=== PATIENT | male | born 1980 | race Caucasian/White ===

== ENCOUNTER 2020-04-15 02:30 | Emergency (ER) | payer SELFPAY ==
[~2020-04-15] VITALS: Ht 182.9 cm; Wt 100.0 kg
--- NOTE | 2020-04-15 02:39 | NUR ---
currently he is laying on his back slightly rolled to his right and moaning and his leg muscles are tight and his hands a little tremulous. Lasted 1 minute and now he is calm. Officer applying handcuffs.
[2020-04-15 02:47] LABS: BASOPHILS # (AUTO) 0.1 X10'3 (0-0.2); BASOPHILS % (AUTO) 0.7 % (0-1); EOSINOPHILS % (AUTO) 0.3 % (0-6); HEMATOCRIT 49.5 % (42.0-52.0); HEMOGLOBIN 16.8 g/dl (14.0-17.9); LYMPHOCYTES # (AUTO) 1.2 X10'3 (1.1-4.8); LYMPHOCYTES % (AUTO) 13.3 % (21-51); MEAN CORPUSCULAR HEMOGLOBIN 30.3 PG (27.0-31.0); MEAN CORPUSCULAR HGB CONC 33.9 g/dL (33.0-36.5); MEAN CORPUSCULAR VOLUME 89.3 FL (78-98); MEAN PLATELET VOLUME 9.3 FL (7.4-10.4); MONOCYTES # (AUTO) 0.9 X10'3 (0-0.9); MONOCYTES % (AUTO) 9.9 % (2-12); NEUTROPHILS % (AUTO) 75.8 % (42-75); PLATELET COUNT 211 X10'3 (140-440); RED BLOOD COUNT 5.55 X10'6 (4.70-6.10); RED CELL DISTRIBUTION WIDTH 13.4 % (11.5-14.5); WHITE BLOOD COUNT 9.3 X10'3 (4.5-11.0)
[2020-04-15 02:57] LABS: ALANINE AMINOTRANSFERASE 38 U/L (12-78); ALBUMIN 4.4 G/DL (3.4-5.0); ALBUMIN/GLOBULIN RATIO 1.2 (1.1-1.5); ALKALINE PHOSPHATASE 94 IU/L (46-116); ANION GAP 7 (8-16); ASPARTATE AMINO TRANSFERASE 28 U/L (10-37); BILIRUBIN,TOTAL 0.5 MG/DL (0.1-1.0); BLOOD UREA NITROGEN 21 MG/DL (7-18); BUN/CREATININE RATIO 15.3 (5.4-32.0); CALCIUM 9.4 MG/DL (8.5-10.1); CHLORIDE 105 MMOL/L (99-107); CREATININE 1.37 MG/DL (0.60-1.10); GLUCOSE 114 MG/DL (70-104); POTASSIUM 3.7 MMOL/L (3.5-5.1); SODIUM 141 MMOL/L (135-145); TOTAL CARBON DIOXIDE 29.4 MMOL/L (24-32); eGFR 58 ML/MIN
[2020-04-15 02:59] LABS: ETHANOL < 0.010 GM/DL (0.0-0.010)
--- NOTE | 2020-04-15 03:09 | NUR ---
EYES CLOSED, COUGHING LIGHTLY. SO HOB ELEVATED TO 40 DEGREES.
--- NOTE | 2020-04-15 03:17 | NUR ---
INFORMED BY RAYMUNDO CORTEZ THAT THE PT DIDN'T MOVE AT ALL WHEN THE CATH WAS PLACED FOR UA. AWARE.
[2020-04-15 03:22] LABS: CLARITY,URINE CLEAR (Clear); COLOR,URINE YELLOW (Yellow); GLUCOSE, URINE NEGATIVE (Neg); KETONES,URINE NEGATIVE (Neg); LEUKOCYTE ESTERASE ,URINE NEGATIVE (Neg); NITRITES, URINE NEGATIVE (Neg); OCCULT BLOOD,URINE NEGATIVE (Neg); PROTEIN,URINE NEGATIVE (Neg); UROBILINOGEN,URINE 0.2 E.U/dL (0.2-1.0)
[2020-04-15 03:27] LABS: UA COLLECTION TYPE STRAIGHT CATH
[2020-04-15 03:31] LABS: URINE AMPHETAMINE SCREEN POSITIVE (Neg); URINE BARBITUATE SCREEN NEGATIVE (Neg); URINE BENZODIAZEPINES SCREEN NEGATIVE (Neg); URINE CANNABINOID SCREEN NEGATIVE (Neg); URINE COCAINE SCREEN NEGATIVE (Neg); URINE METHADONE SCREEN NEGATIVE (Neg); URINE OPIATE SCREEN NEGATIVE (Neg); URINE PHENCYCLIDINE SCREEN NEGATIVE (Neg)
[2020-04-15 03:41] VITALS: BP 139/90
--- NOTE | 2020-04-15 03:41 | NUR ---
was in to tell him that all labs were normal, meth in his urine. He lays with his eyes closed, wiggling his right foot.
--- NOTE | 2020-04-15 03:46 | NUR ---
PT HAD BEEN LISTENING TO WHAT THE MD STATED. HE AWOKE AND MOVED HIS HAND TO HIS NOSE AND THEN THE TECH STATED TO HIM THAT HE WOULD NEED TO GET UP AND GO TO THE CAR AND NOT CAUSE PROBLEMS. HE ACTUALLY STATED "IF I HIT MY HEAD I GET TO COME BACK IN HERE." THE OFFICER HEARD IT WELL.
== END 2020-04-15 03:50 ==
LOC: ER 02:32
DX: R56.9 Unspecified convulsions (principal); M79.604 Pain in right leg; M79.605 Pain in left leg
CPT/HCPCS: 36415; 70450; 80053; 80305; 80320; 81003; 85025; 99284

== ENCOUNTER 2021-05-23 14:51 | Emergency (ER) | payer MEDICAID ==
[~2021-05-23] VITALS: Ht 182.9 cm; Wt 104.0 kg
[2021-05-23] MEDS ORDERED: acetaminophen 325mg tablet PO STA (15:22)
[2021-05-23] MEDS ORDERED: normal saline 1000ML IV soln IV ONE (15:25)
[2021-05-23] MEDS ORDERED: ALBUTEROL INHALER 1 PUFF/90 MCG INHALER IH PRN (15:25)
--- NOTE | 2021-05-23 16:00 | NUR ---
collected urine,covid swab collected.
[2021-05-23 16:13] LABS: HEMATOCRIT 47.3 % (42.0-52.0); MEAN CORPUSCULAR HEMOGLOBIN 30.9 PG (27.0-31.0); MEAN CORPUSCULAR HGB CONC 33.8 g/dL (33.0-36.5); MEAN CORPUSCULAR VOLUME 91.4 FL (78-98); MEAN PLATELET VOLUME 9.2 FL (7.4-10.4); PLATELET COUNT 179 X10'3 (140-440); RED BLOOD COUNT 5.18 X10'6 (4.70-6.10); RED CELL DISTRIBUTION WIDTH 13.8 % (11.5-14.5); WHITE BLOOD COUNT 13.6 X10'3 (4.5-11.0)
[2021-05-23 16:14] LABS: BASOPHILS % (AUTO) 0.3 % (0-1); EOSINOPHILS % (AUTO) 0.2 % (0-6); LYMPHOCYTES # (AUTO) 1.3 X10'3 (1.1-4.8); LYMPHOCYTES % (AUTO) 9.5 % (21-51); MONOCYTES % (AUTO) 14.9 % (2-12); NEUTROPHILS # (AUTO) 10.2 X10'3 (1.8-7.7); NEUTROPHILS % (AUTO) 75.1 % (42-75)
[2021-05-23 16:20] LABS: ALANINE AMINOTRANSFERASE 30 U/L (12-78); ALBUMIN 3.7 G/DL (3.4-5.0); ALBUMIN/GLOBULIN RATIO 0.9 (1.1-1.5); ALKALINE PHOSPHATASE 81 IU/L (46-116); ANION GAP 9 (8-16); ASPARTATE AMINO TRANSFERASE 22 U/L (10-37); BILIRUBIN,TOTAL 0.5 MG/DL (0.1-1.0); BLOOD UREA NITROGEN 16 MG/DL (7-18); BUN/CREATININE RATIO 10.5 (5.4-32.0); CALCIUM 8.5 MG/DL (8.5-10.1); CHLORIDE 101 MMOL/L (99-107); CREATININE 1.52 MG/DL (0.60-1.10); GLUCOSE 105 MG/DL (70-104); POTASSIUM 4.2 MMOL/L (3.5-5.1); SODIUM 138 MMOL/L (135-145); TOTAL CARBON DIOXIDE 27.9 MMOL/L (24-32); TOTAL PROTEIN 7.7 G/DL (6.4-8.2); eGFR 51 ML/MIN
[2021-05-23] MEDS ORDERED: dexamethasone sod phosphate 10mg/ml inj IV STA (17:36)
[2021-05-23] MEDS ORDERED: azithromycin/NS 500mg/250ml 250 ML IV ONE (17:50)
[2021-05-23] MEDS ORDERED: normal saline 1000ML IV soln IVB ONE (17:50)
[2021-05-23] MEDS ORDERED: [UNRECOGNIZED DRUG - OTHER] IV ONE (17:50)
[2021-05-23] MEDS ORDERED: AZIT500T PO (17:56)
[2021-05-23] MEDS ORDERED: DEXA4TAB73 PO (17:56)
[2021-05-23] MEDS ORDERED: ALBU6.7H9 INH (17:56)
--- NOTE | 2021-05-23 18:20 | NUR ---
Per Aubrey GARIBAY,awaiting for Infectious Disease MD to approve adminstration of [facility]ir[facility].
[2021-05-23 21:11] LABS: LARGE PLATELETS FEW; PLATELET ESTIMATE NORMAL; TOTAL CELLS COUNTED 100; TOXIC GRANULATION 1+; TOXIC VACUOLATION FEW
[2021-05-23 21:14] LABS: SMUDGE CELLS FEW
[2021-05-23 21:32] VITALS: BP 113/60
== END 2021-05-23 21:34 ==
LOC: ER 14:52
DX: U07.1 COVID-19 (principal); J02.9 Acute pharyngitis, unspecified; R51.9 Headache, unspecified; R50.9 Fever, unspecified; R05 Cough; R06.02 Shortness of breath; F17.200 Nicotine dependence, unspecified, uncomplicated; Z79.2 Long term (current) use of antibiotics; Z79.899 Other long term (current) drug therapy
CPT/HCPCS: 36415; 71045; 80053; 83605; 84145; 85007; 85025; 87040; 87635; 93005; 96361; 96365; 96375; 99285; C9803; J0456; J1100; J7030; M0243; Q0243